=== PATIENT | female | born 1990 | race Caucasian/White ===

== ENCOUNTER 2016-08-22 20:48 | Emergency (ER) | payer OTHER ==
[~2016-08-22] VITALS: Ht 165.1 cm; Wt 90.4 kg
[2016-08-22 21:00] VITALS: TEMP 36.7; Ht 165.1 cm; Wt 90.4 kg
[2016-08-22] MEDS ORDERED: DiphenhydrAMINE HCL 50 MG/ML VIAL IV STA (22:07)
[2016-08-22] MEDS ORDERED: KETOROLAC TROMETHAMINE 30 MG/ML VIAL IV STA (22:07)
[2016-08-22] MEDS ORDERED: PROCHLORPERAZINE 5 MG/ML 2 ML VIAL IV STA (22:07)
[2016-08-22] MEDS ORDERED: SODIUM CHLORIDE 0.9% 1000ML 1,000 ML IV STA (22:07)
[2016-08-22 23:15] VITALS: BP 139/90; PULSE 67; O2SAT 100
--- NOTE | 2016-08-23 | EMERGENCY ROOM VISIT NOTE ---
History Report prepared by Zack: David Treviño Under the Supervision of: Dr. Akin Mercedes M.D. First contact with patient: 22:01 Chief Complaint: HEADACHE Stated Complaint: MIGRAINE History of Present Illness The patient is a 26 year old female who presents to the Emergency Room with complaints of a headache starting 4 days ago. The headache is located in the left forehead and radiates down to her face. She describes it to be a throbbing pain. She has worsening pain with exposure to light. She describes her current pain to be similar to her past migraine headache. She has been taking Maxalt with temporary relief. She denies any changes with noise or smells. She did not have any recent head trauma or injuries. The patient denies fevers, nausea, vomiting, numbness, weakness, or any other complaints. She denies any chance of . Source of History: patient Onset: 4 days ago Position: head Quality: other (throbbing) Modifying Factors (Worsening): other (exposure to light) Modifying Factors (Relieving): other (Maxalt with temporary relief) Associated Symptoms: No fevers, No nausea, No numbness, No vomiting, No weakness Review of Systems See HPI for pertinent positives & negatives. A total of 10 systems reviewed and were otherwise negative. Past Medical & Surgical Medical Problems: (1) Abdominal pain (2) Abdominal pain (3) Cervical strain, acute (4) Cervical strain, acute (5) Gastroenteritis (6) Gastroenteritis (7) Headache (8) Headache (9) Hip pain, right (10) No Known Active Medical Problems (11) Vaginal bleeding Surgical Problems: (1) History of cholecystectomy (2) History of tubal ligation (3) Laparoscopic ovary removal Family History FH: gallbladder disease Social History Smoking Status: Current Every Day Smoker Alcohol Use: none Drug Use: none Marital Status: Housing Status: lives with family Occupation Status: unemployed Current/Historical Medications No Active Prescriptions or Reported Meds Allergies Coded Allergies: Paroxetine (Unverified Allergy, Severe, "SUICIDAL THOUGHTS", 08/22/16) Morphine (Verified Allergy, Unknown, "ITCHY", 08/22/16) Physical Exam Vital Signs Date Time Temp Pulse Resp B/P Pulse Ox O2 Delivery O2 Flow Rate FiO2 08/22/16 23:15 67 16 139/90 100 08/22/16 21:00 36.7 75 16 140/88 98 Room Air Physical Exam Constitutional: Vital signs reviewed. Eyes: Pupils are equal round reactive to light. Conjunctiva are noninjected. ENT: Pharynx is clear without erythema or exudate. Mucous membranes are moist. Neck supple without meningeal signs. Respiratory: Clear to auscultation bilaterally. Breath sounds are equal bilaterally. Cardiovascular: Regular rate and rhythm. No rubs or gallops. GI: Soft, nondistended and nontender. Bowel sounds are present. Musculoskeletal: No peripheral edema. No lower extremity tenderness. No CVA tenderness. Integumentary: No cyanosis. Neurological: The patient is awake and alert. Cranial nerves II-XII are intact. Motor is 5 out of 5 all extremities. Sensation is intact to light touch all extremities. Normal speech. No pronator drift. Psychiatric: Normal affect. Medical Decision & Procedures Medications Administered Medications (Trade) Dose Ordered Sig/Max Route Start Time Stop Time Status Last Admin Dose Admin Sodium Chloride (Nss 1000ml) 1,000 ml @ 999 mls/hr Q1H1M STAT IV 08/22/16 22:07 08/22/16 23:07 DC 08/22/16 22:23 999 MLS/HR Prochlorperazine Edisylate (Compazine Inj) 10 mg NOW STAT IV 08/22/16 22:07 08/22/16 22:08 DC 08/22/16 22:23 10 MG Diphenhydramine HCl (Benadryl Inj) 50 mg NOW STAT IV 08/22/16 22:07 08/22/16 22:08 DC 08/22/16 22:24 50 MG Ketorolac Tromethamine (Toradol Inj) 10 mg NOW STAT IV 08/22/16 22:07 08/22/16 22:08 DC 08/22/16 22:24 10 MG ED Course 220: The patient was evaluated in room C04. A complete history and physical exam was performed. 2206: Toradol Inj 10 mg IV, Benadryl Inj 50 mg IV, Compazine Inj 10 mg IV, Sodium Chloride 1000 ml @ 999 mls/hr IV 2237: Upon reevaluation, the patient states that she feels much better. I discussed tonight's findings with her. She verbalized agreement of the treatment plan. The patient was discharged home. Medical Decision This is a 26-year-old female who presents with a migraine headache. I did perform a limited focused review of portions of the patient's old chart on the electronic medical record. The patient had a head CT in November 2014 which was unremarkable. I did evaluate the patient as noted above. The patient is presenting with a migraine headache for the past 4 days. She states is identical to her previous migraine headaches. She has no fever or recent head injury. She is neurologically intact. I have no reason to suspect an acute intracranial process such as bleed or meningitis. IV access was established. I did treat her with IV Compazine, Benadryl, Toradol and normal saline. On reassessment the patient states she feels much better and is ready for discharge. She was advised to follow closely with her doctor. She was discharged in good condition. Impression Primary Impression: Acute headache Scribe Attestation The scribe's documentation has been prepared under my direct and personally reviewed by me in its entirety. I confirm that the note above accurately reflects all work, treatment, procedures, and medical decision making performed by me. Departure Information Dispostion Home / Self-Care Prescriptions No Active Prescriptions or Reported Meds Referrals Carlos Garcia D.O. (PCP) Forms HOME CARE DOCUMENTATION FORM, IMPORTANT VISIT INFORMATION Patient Instructions ED Headache Migraine, My [facility] Additional Instructions You have been examined and treated today on an emergency basis only. This is not a substitute for, or an effort to provide, complete comprehensive medical care. It is impossible to recognize and treat all injuries or illnesses in a single emergency department visit. It is therefore important that you follow up closely with your physician. Call as soon as possible for an appointment. Return for worsening symptoms or if you develop fever, numbness or weakness on one side of your body, difficulties with your speech or walking, or any other concerning symptoms. Problem Qualifiers Primary Impression: Acute headache Headache type: unspecified Intractability: not intractable Qualified Codes : R51 - Headache
== END 2016-08-22 23:15 | disposition home or self-care (01) ==
LOC: C.EDB 20:48 → C.EDC 23:15
DX: R51 Headache (principal); F17.210 Nicotine dependence, cigarettes, uncomplicated

== ENCOUNTER 2016-12-08 20:08 | Emergency (ER) | payer OTHER ==
[~2016-12-08] VITALS: Ht 165.1 cm; Wt 88.8 kg
[2016-12-08 20:20] VITALS: TEMP 36.8; Ht 165.1 cm; Wt 88.8 kg
[2016-12-08] MEDS ORDERED: OXYCODONE HCL IR 5 MG TAB (IMMEDIATE RELEASE) PO STA (21:01)
[2016-12-08] MEDS ORDERED: BAYER BACK AND BODY PO (21:05)
--- NOTE | 2016-12-08 21:45 | DIAGNOSTIC IMAGING REPORT ---
PELVIS 1 OR 2 VIEW ROUTINE CLINICAL HISTORY: PELVIS/L HIP PAIN S/P SLIP AND FALL ON STEPS trauma COMPARISON: 07/07/2014 DISCUSSION: The bones and joint spaces appear intact. There is no evidence of fracture, dislocation or bony disease. There is no evidence for soft tissue swelling. IMPRESSION: Negative study. The above report was generated using voice recognition software. It may contain grammatical, syntax or spelling errors. Electronically signed by: Horace Sánchez M.D. 12/08/2016 9:44 PM Dictated Date/Time: 12/08/2016 9:43 PM
--- NOTE | 2016-12-08 21:46 | DIAGNOSTIC IMAGING REPORT ---
L-SPINE MIN 4 VIEWS ROUTINE HISTORY: Trauma LBP S/P FALL ON STEPS COMPARISON: None. FINDINGS: There is no fracture. No subluxation. Disc spaces are preserved. IMPRESSION: No fracture or subluxation within the lumbar spine. The above report was generated using voice recognition software. It may contain grammatical, syntax or spelling errors. Electronically signed by: Horace Sánchez M.D. 12/08/2016 9:45 PM Dictated Date/Time: 12/08/2016 9:44 PM
[2016-12-08] MEDS ORDERED: OXYC1TAB3 PO (22:22)
[2016-12-08] MEDS ORDERED: OXYCODONE IR HOME PACK PO ONE (22:30)
[2016-12-08 22:44] VITALS: BP 137/89; PULSE 78; O2SAT 98
--- NOTE | 2016-12-08 23:09 | EMERGENCY ROOM VISIT NOTE ---
History First contact with patient: 20:31 Chief Complaint: BACK PAIN Stated Complaint: PAIN BOTH HIPS AND LOWER BACK History of Present Illness The patient is a 26 year old female who presents to the Emergency Room with complaints of injuries after she fell down 6 steps. The patient reports that the front edge of the first step broke off, causing her to fall onto her left buttock and lower back before falling down the remaining steps. The patient reports persistent pain, especially when sitting. This injury happened 7 days ago, and reports that she did not have insurance, thus the reason why she did not have a reevaluation. She has an appointment next week with her chiropractor , but reports that she cannot wait that long because of the pain. She denies any paresthesias or numbness of the lower extremities, saddle anesthesia or bladder/bowel incontinence. She rates her discomfort a 6 out of 10. Review of Systems 10 system review was performed and was negative except for pertinent positives and negatives as indicated in history of present illness Past Medical/Surgical History Medical Problems: (1) Abdominal pain (2) Abdominal pain (3) Cervical strain, acute (4) Cervical strain, acute (5) Gastroenteritis (6) Gastroenteritis (7) Headache (8) Headache (9) Hip pain, right (10) No Known Active Medical Problems (11) Vaginal bleeding Surgical Problems: (1) History of cholecystectomy (2) History of tubal ligation (3) Laparoscopic ovary removal Family History FH: gallbladder disease Social History Smoking Status: Current Some Day Smoker Alcohol Use: none Drug Use: none Marital Status: Housing Status: lives with family Occupation Status: unemployed Current/Historical Medications Scheduled PRN Oxycodone Ir (Roxicodone Ir), 1-2 TAB PO Q4H PRN for Pain [[facility]], 1 TAB PO Q6H PRN for Pain Allergies Coded Allergies: Paroxetine (Unverified Allergy, Severe, "SUICIDAL THOUGHTS", 08/22/16) Morphine (Verified Allergy, Unknown, "ITCHY", 08/22/16) Physical Exam Vital Signs Date Time Temp Pulse Resp B/P (MAP) Pulse Ox O2 Delivery O2 Flow Rate FiO2 12/08/16 22:44 78 18 137/89 98 12/08/16 20:20 36.8 95 18 141/93 99 Room Air Pain Rating (0-10): 3.0 Physical Exam CONSTITUTIONAL: Healthy and well nourished. Alert and oriented X 3 with positive affect. Patient appears in mild discomfort. HEENT: Normocephalic, atraumatic. Pupils equal, round and reactive. No hemotympanum, epistaxis, subconjunctival hemorrhage, raccoon's eyes or Chu sign. NECK: Full active range of motion without discomfort. RESPIRATORY: Clear to auscultation bilaterally with no wheezing, crackles, rhonchi or stridor. CARDIOVASCULAR: Regular rate and rhythm with no murmurs, rubs or gallops. GASTROINTESTINAL: Bowel sounds present in all quadrants. Soft and nontender to palpation. MUSCULOSKELETAL: Examination shows diffuse tenderness to palpation through the lower lumbar spine, SI joints, left worse than right and left sciatic notch. Negative logroll bilaterally. Negative sitting straight leg raise. Pedal pulses are intact. INTEGUMENTARY: No rash or other significant dermatologic conditions noted. NEUROLOGIC: No focal neurologic deficits noted. Lower extremities are sensory intact. Medical Decision & Procedures ER Provider Diagnostic Interpretation: My interpretation of lumbar spine and pelvis x-rays does not show any acute fractures or dislocations. Radiologist reports were also reviewed. Medications Administered Medications (Trade) Dose Ordered Sig/Max Route Start Time Stop Time Status Last Admin Dose Admin Oxycodone HCl (Roxicodone Immediate Rel Tab) 5 mg NOW STAT PO 12/08/16 21:01 12/08/16 21:04 DC 12/08/16 21:14 5 MG Oxycodone HCl (Roxicodone Immediate Rel 5MG Home Pack) 1 homepack UD ONCE PO 12/08/16 22:30 12/08/16 22:31 DC 12/08/16 22:42 1 HOMEPACK ED Course Patient history and physical exam were performed. Nurse's notes were reviewed. Vital signs were reviewed, showing a mildly elevated blood pressure 141/93. Repeat blood pressure prior to discharge was 137/89. The patient was advised of her elevated blood pressure readings, and encouraged to discuss them with her family doctor. The patient was administered OxyIR 5 mg for pain. X-rays of the lumbar spine and pelvis were normal. The patient was advised that her symptoms are most consistent with pelvic contusion and mild left sciatica. She was encouraged to intermittently apply ice to areas of discomfort. Minimize sitting in heavy lifting for now. Ibuprofen and Tylenol in alternating fashion as needed for baseline pain relief. The patient was provided a prescription for OxyIR 5 mg with home pack. No drinking alcohol or driving while taking OxyIR. The patient was instructed to follow-up with her PCP as well for further management of her back. The patient voiced understanding of all discharge instructions, was happy with plan of care, and rated her pain a 3 out of 10 at the conclusion of my exam. Medical Decision Patient does not have any history or physical exam findings consistent with cauda equina syndrome. X-rays are not suggestive of fracture. The patient does describe symptoms consistent with pelvic contusion and mild left sciatica. She was given instructions on when to return to the emergency department for significant symptom changes consistent with compressive neuropathy. [facility] [employer] Monitoring Program Search Results: patient reviewed within database, no issues identified Impression Primary Impression: Pelvic contusion Additional Impressions: Fall down steps Left-sided low back pain with sciatica Departure Information Dispostion Home / Self-Care Condition GOOD Prescriptions Oxycodone Ir (Roxicodone Ir) 5 Mg Tab 1-2 TAB PO Q4H Y for Pain, #15 TAB For Initial Treatment Prov: Marc Duff PA 12/08/16 Forms HOME CARE DOCUMENTATION FORM, IMPORTANT VISIT INFORMATION Patient Instructions My [facility] Additional Instructions Intermittently apply ice to areas of discomfort. Avoid sitting for long periods of time or heavy lifting. Ibuprofen 800 mg and/or Tylenol 1000 mg every 8 hours. You may also alternate these medications for more effective pain relief: Ibuprofen --4 HRS--> Tylenol --4 HRS--> ibuprofen --4 HRS--> Tylenol .... OxyIR if needed for worse pain. Do not drink alcohol or drive while taking OxyIR. Follow-up with your family doctor within the next 3-5 days for reevaluation. Problem Qualifiers Primary Impression: Pelvic contusion Encounter type: initial encounter Qualified Codes: S30.0XXA - Contusion of lower back and pelvis, initial encounter Additional Impressions: Fall down steps Encounter type: initial encounter Qualified Codes: W10.8XXA - Fall (on) ( from) other stairs and steps, initial encounter Left-sided low back pain with sciatica Chronicity: acute Sciatica laterality: sciatica of left side Qualified Codes: M54.42 - Lumbago with sciatica, left side
== END 2016-12-08 22:46 | disposition home or self-care (01) ==
LOC: C.EDB 20:09 → C.EDD 22:46
DX: S30.0XXA Contusion of lower back and pelvis, initial encounter (principal); M54.42 Lumbago with sciatica, left side; M25.551 Pain in right hip; M25.552 Pain in left hip; W10.9XXA Fall (on) (from) unspecified stairs and steps, initial encounter; F17.210 Nicotine dependence, cigarettes, uncomplicated